=== PATIENT | male | born 1965 | race African-American/Black ===

== ENCOUNTER 2020-07-14 17:28 | Emergency (ER) | payer SELFPAY ==
[~2020-07-14] VITALS: Ht 182.9 cm; Wt 97.0 kg
[~2020-07-14 17:28] MED LIST: AMLO10TA4 PO; ASPI-1158 PO; METO-539 PO
[2020-07-14 17:30] VITALS: BP 138/91
== END 2020-07-14 19:00 | disposition left against medical advice (07) ==
LOC: ER 17:28
DX: M25.511 Pain in right shoulder (principal); Z53.21 Procedure and treatment not carried out due to patient leaving prior to being seen by health care provider